=== PATIENT | female | born 1950 | race Caucasian/White ===

== ENCOUNTER → 2018-04-21 11:28 | Outpatient (CLI) | payer OTHER, SELFPAY ==
--- NOTE | 2018-04-21 | DI.MG.S_ITS ---
BILATERAL DIGITAL SCREENING MAMMOGRAM 3D/2D WITH CAD: 04/21/2018 CLINICAL: Routine screening. Family history of breast cancer. Comparison is made to exams dated: 03/16/2017 mammogram, 02/10/2017 mammogram, 02/05/2016 mammogram, and 03/16/2017 ultrasound biopsy - [facility]. There are scattered fibroglandular elements in both breasts. Current study was also evaluated with a Computer Aided Detection (CAD) system. There are increased bilateral berenice-like calcifications in both breasts consistent with benign secretory calcifications. There also is a biopsy clip in the right breast. No significant masses, calcifications, or other findings are seen in either breast. There has been no significant interval change. IMPRESSION: There is no mammographic evidence of malignancy. A 1 year screening mammogram is recommended. This exam was interpreted at Station ID: [id number]. NOTE: For mammograms, a report in lay terms will be sent to the patient. Approximately 15% of breast malignancies will not be visualized mammographically. In the management of a palpable breast mass, a negative mammogram must not discourage biopsy of a clinically suspicious lesion. Electronically Signed By: Adrian Corbett M.D. ecl/:04/21/2018 19:02:31 letter sent: Normal Exam ACR BI-RADS Category 2: Benign Finding(s) 3342F
== END ==
PROVIDERS: Family Provider Family Medicine; PCP Family Medicine; Visit Provider Family Medicine
DX: Z12.31 Encounter for screening mammogram for malignant neoplasm of breast (principal); Z80.3 Family history of malignant neoplasm of breast
CPT/HCPCS: 77063; 77067

== ENCOUNTER → 2019-06-07 11:23 | Outpatient (CLI) | payer MEDICARE, BC, SELFPAY ==
--- NOTE | 2019-06-07 | DI.MG.S_ITS ---
BILATERAL DIGITAL SCREENING MAMMOGRAM 3D/2D WITH CAD: 06/07/2019 CLINICAL: Routine screening. Family history of breast cancer. Comparison is made to exams dated: 04/21/2018 mammogram, 03/16/2017 mammogram, 02/10/2017 mammogram, 02/05/2016 mammogram, and 01/25/2015 mammogram - [facility]. There are scattered fibroglandular elements in both breasts. Current study was also evaluated with a Computer Aided Detection (CAD) system. There are benign calcifications in both breasts. There also is a biopsy clip in the right breast. No significant masses, calcifications, or other findings are seen in either breast. There has been no significant interval change. IMPRESSION: There is no mammographic evidence of malignancy. A 1 year screening mammogram is recommended. This exam was interpreted at Station ID: [id number]. NOTE: For mammograms, a report in lay terms will be sent to the patient. Approximately 15% of breast malignancies will not be visualized mammographically. In the management of a palpable breast mass, a negative mammogram must not discourage biopsy of a clinically suspicious lesion. Electronically Signed By: Max chacko/david:06/08/2019 08:23:31 letter sent: Normal Exam ACR BI-RADS Category 2: Benign Finding(s) 3342F
== END ==
PROVIDERS: Family Provider Family Medicine; PCP Family Medicine; Referring Provider Family Medicine; Visit Provider Family Medicine
DX: Z12.31 Encounter for screening mammogram for malignant neoplasm of breast (principal); Z80.3 Family history of malignant neoplasm of breast
CPT/HCPCS: 77063; 77067

== ENCOUNTER → 2019-09-23 14:08 | Outpatient (CLI) | payer MEDICARE, BC, SELFPAY | PROVIDERS: Family Provider Family Medicine; PCP Family Medicine; Referring Provider Family Medicine; Visit Provider Family Medicine | DX: M85.851 Other specified disorders of bone density and structure, right thigh (principal); Z78.0 Asymptomatic menopausal state | CPT/HCPCS: 77080 ==

== ENCOUNTER → 2020-07-23 15:48 | Outpatient (CLI) | payer OTHER, SELFPAY ==
--- NOTE | 2020-07-23 15:53 | DI.MG.S_ITS ---
BILATERAL DIGITAL SCREENING MAMMOGRAM 3D/2D WITH CAD: 07/23/2020 CLINICAL: Routine screening. Family history of breast cancer. Comparison is made to exams dated: 06/07/2019 mammogram, 04/21/2018 mammogram, 03/16/2017 mammogram, and 02/10/2017 mammogram - [facility]. There are scattered fibroglandular elements in both breasts. Current study was also evaluated with a Computer Aided Detection (CAD) system. There are calcifications in both breasts. There also is a biopsy clip in the right breast. There has been no significant interval change. No significant masses, calcifications, or other findings are seen in either breast. IMPRESSION: BENIGN There is no mammographic evidence of malignancy. A 1 year screening mammogram is recommended. This exam was interpreted at Station ID: [id number]. NOTE: For mammograms, a report in lay terms will be sent to the patient. Approximately 15% of breast malignancies will not be visualized mammographically. In the management of a palpable breast mass, a negative mammogram must not discourage biopsy of a clinically suspicious lesion. Electronically Signed By: Max Blanchard M.D. at/:07/23/2020 16:29:24 letter sent: Normal Exam ACR BI-RADS Category 2: Benign Finding(s) 3342F
== END ==
PROVIDERS: Family Provider Family Medicine; PCP Family Medicine; Referring Provider Family Medicine; Visit Provider Family Medicine
DX: Z12.31 Encounter for screening mammogram for malignant neoplasm of breast (principal)
CPT/HCPCS: 77063; 77067

== ENCOUNTER → 2021-01-30 08:11 | Outpatient (CLI) | payer MEDICARE, SELFPAY ==
[2021-01-30 12:03] LABS: COVID19 -Nasal RAPID Negative (Negative)
== END ==
PROVIDERS: Family Provider Family Medicine; PCP Family Medicine; Visit Provider Nurse Practitioner
DX: Z20.822 Contact with and (suspected) exposure to COVID-19 (principal)
CPT/HCPCS: 87635; C9803

== ENCOUNTER 2021-02-01 11:50 | Day surgery (SDC) | payer MEDICARE, SELFPAY ==
--- NOTE | 2021-02-01 | PATH_ITS ---
[facility] Accession Number: [id number] . 01 Material submitted: . cecum - CECAL POLYP 4MM . 02 Diagnosis: Cecal Polyp, 4 mm, Biopsy: Tubular adenoma. MRV 02/04/2021 1006 Local . 02 Electronically signed: . Nahun Boone MD, PhD, Pathologist NPI- [id number] . 01 Gross description: . CECAL POLYP 4MM: Received in formalin is 1 fragment(s) of chan, soft tissue measuring 0.4 x 0.2 x 0.2 cm submitted entirely in 1 cassette(s) /ALLAN 02/02/2021 0443 Local . 02 Pathologist provided ICD-10: D12.0 . 02 CPT . 223467 Performed at: 01 [facility] [address] [place] [address], [place], [place] [id number] MD Elver Krishnan MD Phone: [phone] Performed at: 02 [facility] [address] [place], [place] [id number] MD Berenice Kuhn MD Phone: [phone]
[2021-02-01] MEDS: LACTATED RINGERS 1,000 ML 42 ML IV (12:02)
[2021-02-01 12:09] VITALS: BP 162/75; PULSE 64; RESP 18; TEMP 36.9; O2SAT 100; BMI 23.6
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
--- NOTE | 2021-02-01 12:36 | PM.OP.COLON ---
Operative Date/Time/Diagnoses Date of procedure: 02/01/21 Procedure Notes SCOAP/Timeout: 1:13 p.m. Procedure in detail: ENDOSCOPIST: Joyce Weeks MD Sedation RN: Carter Fry RN Sedation start time: 1:14 p.m. Sedation end time: 1:18 p.m. PROCEDURE: Colonoscopy with cold biopsy INDICATIONS: 1. Screening for colon cancer MEDICATION: Levsin 0.125 mg sublingual, incremental doses of Versed and fentanyl until appropriate level sedation achieved. ASA CLASS: 2 CECAL WITHDRAWAL TIME: 8 minutes COMPLICATIONS: None. EXTENT OF PROCEDURE: Cecum. QUALITY OF PREP: Good with portions of liquid stool. PROCEDURE: Prior to insertion of the colonoscope, a digital rectal examination was accomplished with circumferential palpation of the distal rectal mucosa without significant findings being noted. The high-definition pediatric colonoscope was passed into the rectum in the usual fashion and advanced over to the cecum without difficulty. The ileocecal valve, appendiceal stoma, and medial wall all could be inspected and a 4 mm polyp was seen and removed with cold biopsy forceps. Pancolonic diverticulosis noted upon withdrawal. ASCENDING COLON: As the colonoscope was withdrawn, care was taken to expose and inspect the haustral folds and minor diverticulosis was seen. HEPATIC FLEXURE: Minor diverticulosis otherwise normal, no polyps, or other abnormalities. TRANSVERSE COLON: Minor diverticulosis otherwise normal, no polyps, or other abnormalities. DESCENDING COLON: Minor diverticulosis otherwise normal, no polyps, or other abnormalities. SIGMOID COLON: Minor diverticulosis otherwise normal, no polyps, or other abnormalities. RECTUM: Normal. J maneuver was produced. There was no significant perianal disease. The J maneuver was broken. The remainder of the rectum was inspected and there was moderate external hemorrhoid disease. The scope was withdrawn. IMPRESSION: 1. Cecal polyp x1, 4 mm, removed with cold biopsy forceps 2. Pancolonic diverticulosis 3. External hemorrhoids, moderate, nonthrombosed PLAN: 1. Follow-up in clinic status post pathology results. The possibility of a missed lesion including a malignancy has been discussed with the patient previously. Potential alarm symptoms have been discussed and should be reported immediately.
[2021-02-01] MEDS: HYOSCYAMINE 0.125 MG TABLET PO (12:58)
[2021-02-01] MEDS: fentaNYL 250 MCG/5 ML INJ IV (13:35)
[2021-02-01] MEDS: MIDAZOLAM 5 MG/5 ML VIAL IV (13:35)
[2021-02-01 13:37] VITALS: BP 128/65; PULSE 62; RESP 15; TEMP 36.6; O2SAT 99
[2021-02-01 13:42] VITALS: BP 127/54; PULSE 60; RESP 18; O2SAT 98
[2021-02-01 13:47] VITALS: BP 109/54; PULSE 58; RESP 15; TEMP 36.6; O2SAT 98
[2021-02-01 13:52] VITALS: BP 110/53; PULSE 57; RESP 16; O2SAT 97
[2021-02-01 13:58] VITALS: BP 118/56; PULSE 63; RESP 18; O2SAT 98
--- NOTE | 2021-02-01 14:02 | SUR.PHASEII ---
discharge instructions given by nurse and MD. questions invited and answered. states understanding.
== END 2021-02-01 14:10 | disposition home or self-care (01) ==
PROVIDERS: Family Provider Family Medicine; PCP Family Medicine; Referring Provider Student in an Organized Health Care Education/Training Program; Visit Provider Student in an Organized Health Care Education/Training Program
PROC: 0DJD8ZZ Inspection of Lower Intestinal Tract, Via Natural or Artificial Opening Endoscopic (ICD-10-PCS; CPT 45378; principal; 2021-02-01 13:00)
DX: Z12.11 Encounter for screening for malignant neoplasm of colon (principal); I10 Essential (primary) hypertension; E78.5 Hyperlipidemia, unspecified; K64.8 Other hemorrhoids; K57.30 Diverticulosis of large intestine without perforation or abscess without bleeding; D12.0 Benign neoplasm of cecum
CPT/HCPCS: 45380; J2250; J3010

== ENCOUNTER → 2021-07-24 14:20 | Outpatient (CLI) | payer MEDICARE, SELFPAY ==
--- NOTE | 2021-07-24 14:22 | DI.MG.S_ITS ---
BILATERAL DIGITAL SCREENING MAMMOGRAM 3D/2D WITH CAD: 07/24/2021 CLINICAL: Routine screening. Family history of breast cancer. Comparison is made to exams dated: 07/23/2020 mammogram, 06/07/2019 mammogram, and 04/21/2018 mammogram - [facility]. There are scattered fibroglandular elements in both breasts. Current study was also evaluated with a Computer Aided Detection (CAD) system. There are benign calcifications in both breasts. There also is a biopsy clip in the right breast. No significant masses, calcifications, or other findings are seen in either breast. There has been no significant interval change. IMPRESSION: BENIGN There is no mammographic evidence of malignancy. A 1 year screening mammogram is recommended. This exam was interpreted at Station ID: [id number]. NOTE: For mammograms, a report in lay terms will be sent to the patient. Approximately 15% of breast malignancies will not be visualized mammographically. In the management of a palpable breast mass, a negative mammogram must not discourage biopsy of a clinically suspicious lesion. Electronically Signed By: Salvatore Mas M.D., jr/david:07/24/2021 15:25:21 letter sent: Normal Exam ACR BI-RADS Category 2: Benign Finding(s) 3342F
== END ==
PROVIDERS: Family Provider Family Medicine; PCP Family Medicine; Referring Provider Family Medicine; Visit Provider Family Medicine
DX: Z12.31 Encounter for screening mammogram for malignant neoplasm of breast (principal); Z80.3 Family history of malignant neoplasm of breast
CPT/HCPCS: 77063; 77067

== ENCOUNTER → 2022-03-19 12:45 | Outpatient (CLI) | payer MEDICARE, SELFPAY | PROVIDERS: Family Provider Family Medicine; PCP Family Medicine; Referring Provider Family Medicine; Visit Provider Family Medicine | DX: M85.851 Other specified disorders of bone density and structure, right thigh (principal); Z78.0 Asymptomatic menopausal state | CPT/HCPCS: 77080 ==

== ENCOUNTER → 2022-07-25 08:15 | Outpatient (CLI) | payer MEDICARE, SELFPAY ==
--- NOTE | 2022-07-25 | DI.MG.S_ITS ---
BILATERAL DIGITAL SCREENING MAMMOGRAM 3D/2D WITH CAD: 07/25/2022 CLINICAL: Routine screening. Family history of breast cancer. Comparison is made to exams dated: 07/24/2021 mammogram, 07/23/2020 mammogram, and 06/07/2019 mammogram - [facility]. There are scattered areas of fibroglandular density in both breasts (category b / 25%-50% glandular tissue). Current study was also evaluated with a Computer Aided Detection (CAD) system. There are benign calcifications in both breasts. There also is a biopsy clip in the right breast. No significant masses, calcifications, or other findings are seen in either breast. There has been no significant interval change. IMPRESSION: BENIGN There is no mammographic evidence of malignancy. A 1 year screening mammogram is recommended. Based on the Tyrer Cuzick model (a risk assessment model) the patient's lifetime risk is 12.9% and her 10 year risk is 8.3%. According to the ACR, ACS, and NCCN guidelines, an annual breast MRI exam along with mammogram is recommended if the patient's lifetime risk is 20% or greater. This exam was interpreted at Station ID: [id number]. NOTE: For mammograms, a report in lay terms will be sent to the patient. Approximately 15% of breast malignancies will not be visualized mammographically. In the management of a palpable breast mass, a negative mammogram must not discourage biopsy of a clinically suspicious lesion. Electronically Signed By: Rashaun velásquez/david:07/25/2022 10:39:12 letter sent: Normal Exam ACR BI-RADS Category 2: Benign Finding(s) 3342F
== END ==
PROVIDERS: Family Provider Family Medicine; PCP Family Medicine; Referring Provider Family Medicine; Visit Provider Family Medicine
DX: Z12.31 Encounter for screening mammogram for malignant neoplasm of breast (principal); Z80.3 Family history of malignant neoplasm of breast
CPT/HCPCS: 77063; 77067

== ENCOUNTER → 2023-07-14 08:00 | Outpatient (CLI) | payer MEDICARE, OTHER, SELFPAY ==
--- NOTE | 2023-07-14 | DI.ECHO.S_ITS ---
[place] [facility]---------+ [facility] +---------+ : : [address] : : : : [id number] : : : : Phone: [phone]+ Echocardiogram Report + + :Name: LEON JOLLY Study Date: 07/14/2023 Height: 64 in : :[facility] ReadingLocation: Weight: 140 lb : : Gender: Female BSA: 1.7 m2 : :: 1950 Age: 72 yrs BP: 151/62 mmHg: :Reason For Study: SVT : :Ordering Physician: TENISHA, : :KANIKA Performed By: Salvatore Larson : :Referring: KANIKA STEVEN : + + Interpretation Summary The ejection fraction is estimated to be 70-75%. Diastolic parameters suggest probable normal left ventricular diastolic function and normal filling pressures. The right ventricle is normal in size and function. No significant valvular abnormalities. Pulmonary artery pressures cannot be estimated because of the lack of a measurable TR jet velocity but the IVC suggests a CVP of around 3 mmHg. Procedure: A two-dimensional transthoracic echocardiogram with color flow and Doppler was performed. The study quality was technically adequate. There is no prior echocardiogram noted for this patient. The patient was in normal sinus rhythm during the exam. The heart rate ranged between 57-77 bpm during the study. Left Ventricle: The left ventricle is normal in size and wall thickness. The ejection fraction is estimated to be 70-75%. Diastolic parameters suggest probable normal left ventricular diastolic function and normal filling pressures. Right Ventricle: The right ventricle is normal in size and function. The right ventricular systolic function is normal. Atria: The left atrial size is normal. Right atrial size is normal. The interatrial septum grossly appears intact with no obvious evidence for an atrial septal defect. Mitral Valve: The mitral valve is normal in structure and function. There is no mitral valve stenosis. There is trace mitral regurgitation. Aortic Valve: The aortic valve is trileaflet. There is discrete nodular thickening of the non- coronary cusp. The aortic valve opens well. There is no aortic valve stenosis. No aortic regurgitation is present. Tricuspid Valve: The tricuspid valve is normal in structure and function. There is no tricuspid stenosis. There is a trace or physiologic amount of tricuspid regurgitation. Pulmonary artery pressures cannot be estimated because of the lack of a measurable TR jet velocity but the IVC suggests a CVP of around 3 mmHg. Pulmonic Valve: The pulmonic valve is not well visualized. There is no pulmonic valvular stenosis. There is no pulmonic valvular regurgitation. Great Vessels: The aortic root is normal size. The dimensions of the ascending aorta are normal. The IVC is of normal diameter and collapses greater than 50% with a sniff. This suggests a low right atrial pressure of 3 mm Hg. Pericardium/ Pleura There is no pericardial effusion. There is no pleural effusion. MMode/2D Measurements & Calculations LVIDd: 4.4 cm LVOT diam: 2.1 cm LVIDs: 2.1 cm Ao root diam: 3.2 cm FS: 52.0 % asc Aorta Diam: 3.2 cm IVSd: 0.91 cm Ao Arch Diam (Prox Trans): 2.4 cm LVPWd: 0.67 cm LV najera. diameter/BSA (cm/m^2): 2.6 LV sys. diameter/BSA (cm/m^2): 1.3 LA A2 area: 18.4 cm2 RA long axis: 4.7 cm LA A4 area: 20.3 cm2 RA area: 16.3 cm2 LA length (vol): 6.0 cm RA vol: 48.4 ml LA vol: 52.9 ml RA : 28.8 ml/m2 LA vol index: 31.5 ml/m2 IVC diam: 1.5 cm RVD1 (basal): 3.8 cm RVD2 (mid): 2.6 cm TAPSE: 2.8 cm Doppler Measurements & Calculations Ao V2 max: 206.2 cm/sec LVOT Max Alistair: 186.8 cm/sec Ao V2 mean: 147.1 cm/sec LV V1 max P.0 mmHg Ao max P.0 mmHg LV V1 VTI: 43.8 cm Ao mean P.7 mmHg ALLAN(I,D): 2.9 cm2 Ao V2 VTI: 51.5 cm ALLAN(V,D): 3.1 cm2 sev ratio: 0.85 ALLAN indexed to BSA (cm^2/m^2): 1.7 MV E max alistair: 107.1 cm/sec PA V2 max: 104.8 cm/sec MV A max alistair: 96.9 cm/sec PA V2 mean: 76.4 cm/sec MV E/A: 1.1 PA mean P.5 mmHg Med Peak E' Alistair: 7.4 cm/sec PA pr(Accel): 37.9 mmHg E/E' med: 14.5 Lat Peak E' Alistair: 9.5 cm/sec E/E' lat: 11.3 E/e' average: 12.9 MV dec time: 0.20 sec SV(LVOT): 150.0 ml Reading Physician:04:22 PM
== END ==
PROVIDERS: Family Provider Family Medicine; PCP Family Medicine; Referring Provider Family Medicine; Visit Provider Family Medicine
DX: I47.10 Supraventricular tachycardia, unspecified (principal); Z85.828 Personal history of other malignant neoplasm of skin
CPT/HCPCS: 93306

== ENCOUNTER → 2023-07-29 14:42 | Outpatient (CLI) | payer MEDICARE, OTHER, SELFPAY ==
--- NOTE | 2023-07-29 14:43 | DI.MG.S_ITS ---
BILATERAL DIGITAL SCREENING MAMMOGRAM 3D/2D WITH CAD: 07/29/2023 CLINICAL: Routine screening. Family history of breast cancer. Comparison is made to exams dated: 07/25/2022 mammogram, 07/24/2021 mammogram, and 07/23/2020 mammogram - [facility]. There are scattered areas of fibroglandular density in both breasts (category b / 25%-50% glandular tissue). Current study was also evaluated with a Computer Aided Detection (CAD) system. There are benign calcifications in both breasts. There also is a biopsy clip in the right breast. No significant masses, calcifications, or other findings are seen in either breast. There has been no significant interval change. IMPRESSION: BENIGN There is no mammographic evidence of malignancy. A 1 year screening mammogram is recommended. Based on the Tyrer Cuzick model (a risk assessment model) the patient's lifetime risk is 12.2% and her 10 year risk is 8.5%. According to the ACR, ACS, and NCCN guidelines, an annual breast MRI exam along with mammogram is recommended if the patient's lifetime risk is 20% or greater. This exam was interpreted at Station ID: [id number]. NOTE: For mammograms, a report in lay terms will be sent to the patient. Approximately 15% of breast malignancies will not be visualized mammographically. In the management of a palpable breast mass, a negative mammogram must not discourage biopsy of a clinically suspicious lesion. Electronically Signed By: Jes carroll/david:07/29/2023 15:26:16 letter sent: Normal Exam ACR BI-RADS Category 2: Benign Finding(s) 3342F
== END ==
PROVIDERS: Family Provider Family Medicine; PCP Family Medicine; Referring Provider Family Medicine; Visit Provider Family Medicine
DX: Z12.31 Encounter for screening mammogram for malignant neoplasm of breast (principal); Z80.3 Family history of malignant neoplasm of breast; R92.323 Mammographic fibroglandular density, bilateral breasts
CPT/HCPCS: 77063; 77067

== ENCOUNTER → 2024-02-16 10:17 | Outpatient (CLI) | payer MEDICARE, OTHER, SELFPAY ==
--- NOTE | 2024-02-16 10:18 | DI.RAD.S_ITS ---
PROCEDURE: XR DEXA AXIAL SKELETON INDICATIONS: OTHER SPECIFIED DISORDES OF BONE DENSITY COMPARISON: [facility], , XR DEXA AXIAL SKELETON, 03/19/2022, 13:09. [facility], , XR DEXA AXIAL SKELETON, 09/23/2019, 14:34. FINDINGS: Lumbar Spine: Bone mineral density 0.880 g/cm2, T score -1.5. Left Hip: Bone mineral density 0.841 g/cm2, T score -0.8. Left Femoral Neck: Bone mineral density 0.653 g/cm2, T score -1.8. Right Hip: Bone mineral density 0.784 g/cm2, T score -1.3. Right Femoral Neck: Bone mineral density 0.588 g/cm2, T score -2.3. Fracture Risk Calculation (when applicable): 10-year fracture risk of a major osteoporotic fracture 21 percent and of a hip fracture 5 percent. (T score greater or equal to -1.0 to: NORMAL) (T score from -1.1 to -2.4: OSTEOPENIA) (T score less than or equal to -2.5: OSTEOPOROSIS) IMPRESSION: Osteopenia Follow-up guidelines as follows: Osteoporosis: Consider a repeat DEXA and Vertebral Fracture Assessment (VFA) exam in 2 years or sooner if medically necessary, to reassess this patient's status. Osteopenia: Consider a repeat DEXA in 2-3 years to reassess this patient's status, or if there is a new clinical indication. Normal: Consider a repeat DEXA in 5 years or sooner, or if there is a new clinical indication. All treatment decisions require clinical judgment and consideration of individual patient factors, including patient preferences, comorbidities, previous drug use, risk factors not captured in the FRAX model (e.g., frailty, falls, vitamin D deficiency, increased bone turnover, interval significant decline in bone density ) and possible under- or over-estimation of fracture risk by FRAX. In addition, the NOF Guide recommends that FDA-approved medical therapies be considered in postmenopausal women and men age >= 50 years with a: * Hip or vertebral (clinical or morphometric) fracture * T-score of <=-2.5 at the spine or hip * Ten-year fracture probability by FRAX of >= 3% for hip fracture or >=20% for major osteoporotic fracture. People with diagnosed cases of osteoporosis or at high risk for fracture should have regular bone mineral density tests. For patients eligible for Medicare, routine testing is allowed once every 2 years. The testing frequency can be increased to one year for patients who have rapidly progressing disease, those who are receiving or discontinuing medical therapy to restore bone mass, or have additional risk factors. Dictated by: Bashir Covington M.D. on 02/16/2024 at 14:39 Approved by: Bashir Covington M.D. on 02/16/2024 at 14:44
== END ==
PROVIDERS: Family Provider Family Medicine; PCP Family Medicine; Referring Provider Family Medicine; Visit Provider Family Medicine
DX: M85.89 Other specified disorders of bone density and structure, multiple sites (principal)
CPT/HCPCS: 77080

== ENCOUNTER → 2024-08-06 08:00 | Outpatient (CLI) | payer MEDICARE, OTHER, SELFPAY ==
--- NOTE | 2024-08-06 08:02 | DI.MG.S_ITS ---
MM screening mammo BI: 08/06/2024. BI-RADS: 2 CLINICAL: 73-year old female for bilateral screening mammogram. Tyrer-Cuzick lifetime risk of 5.9%. Current reported family history of breast cancer: mother. The patient had a prior left breast biopsy. PRIOR EXAMS: 07/29/2023, 07/25/2022, 07/24/2021, 07/23/2020, 06/07/2019, 04/21/2018, 03/16/2017, 02/10/2017, 02/05/2016, 01/25/2015. MAMMOGRAPHY TECHNIQUE: 2D and 3D (tomosynthesis) digital mammographic views obtained, with additional images as needed for full coverage. Current study was also evaluated with a Computer Aided Detection (CAD) system. DENSITY A. The breasts are almost entirely fatty. MAMMOGRAPHY FINDINGS Bilateral: Benign-appearing calcifications noted. There are no suspicious masses, calcifications, or other findings in the breast. No significant change from comparison. IMPRESSION: * No evidence of malignancy with benign findings. RECOMMENDATIONS Bilateral * Annual screening mammography. OVERALL ASSESSMENT CATEGORY BI-RADS-2: Benign. The [employer] recommends annual screening mammography beginning at age 40 for women with average risk of breast cancer. ELECTRONICALLY SIGNED: Rachel Davis M.D. on 08/08/2024 at 04:48:21 PM PT Interpreting Station ID: [id number]
== END ==
PROVIDERS: Family Provider Family Medicine; PCP Family Medicine; Referring Provider Family Medicine; Visit Provider Family Medicine
DX: Z12.31 Encounter for screening mammogram for malignant neoplasm of breast (principal); Z80.3 Family history of malignant neoplasm of breast; R92.313 Mammographic fatty tissue density, bilateral breasts
CPT/HCPCS: 77063; 77067

== ENCOUNTER → 2025-01-01 10:09 | Outpatient (CLI) | payer MEDICARE, OTHER, SELFPAY ==
[2025-01-01 10:53] LABS: Influenza A - CEPHEID Flu A NEGATIVE (NEGATIVE); Influenza B - CEPHEID Flu B NEGATIVE (NEGATIVE)
[2025-01-01 10:55] LABS: COVID-19 CEPHEID 4-PLEX PCR Negative (Negative)
== END ==
PROVIDERS: Family Provider Family Medicine; PCP Family Medicine; Visit Provider Nurse Practitioner Family
DX: R05.9 Cough, unspecified (principal); R09.81 Nasal congestion
CPT/HCPCS: 87637